=== PATIENT | male | born 1990 | race Caucasian/White ===

== ENCOUNTER 2017-07-23 20:28 | Inpatient (IN) | payer OTHER ==
--- NOTE | 2017-07-23 21:00 | EDM.PDOC ---
ED HPI GENERAL MEDICAL PROBLEM - General Chief Complaint: Gastrointestinal Problem Stated Complaint: VOMITING BLOOD 4X TODAY/ SHAKING Time Seen by Provider: 07/23/17 21:00 Source of Information: Reports: Patient History Limitations: Reports: No Limitations Upper Epigastric Pain Score (Numeric/FACES): 1 - Related Data Allergies Allergy/AdvReac Type Severity Reaction Status Date / Time No Known Allergies Allergy Verified 07/23/17 20:54 Home Meds: Home Meds . [No Known Home Meds] 07/23/17 [History] Past Medical History - Past Health History Medical/Surgical History: Denies Medical/Surgical History Social & Family History - Tobacco Use Smoking Status *Q: Current Every Day Smoker Years of Tobacco use: 9 Packs/Tins Daily: 1 - Caffeine Use Caffeine Use: Reports: Coffee, Energy Drinks - Alcohol Use Days Per Week of Alcohol Use: 5 Number of Drinks Per Day: 4 Total Drinks Per Week: 20 Date of Last Drink: 07/23/17 Time of Last Drink: 03:00 - Recreational Drug Use Recreational Drug Use: Yes Drug Use in Last 12 Months: No Recreational Drug Type: Reports: Marijuana/Hashish Course - Vital Signs Last Recorded V/S: Last Vital Signs Temp 36.2 C 07/23/17 20:49 Pulse 155 H 07/23/17 20:49 Resp 12 07/23/17 20:49 BP 129/78 07/23/17 20:49 Pulse Ox 99 07/23/17 20:49 Departure - Discharge Information Referrals: PCP,None [Primary Care Provider] -
[2017-07-23] MEDS ORDERED: Sodium Chloride 0.9% 10 ML Syringe FLUSH PRN (21:15)
[2017-07-23] MEDS ORDERED: Pantoprazole 40 MG Vial IVPUSH ONE (21:15)
[2017-07-23] MEDS ORDERED: Sodium Chloride 0.9% 2.5 ML Syringe FLUSH PRN (21:15)
[2017-07-23] MEDS ORDERED: Sodium Chloride 0.9% 1,000 ML IV ONE ×3 (21:15→22:36)
[2017-07-23] MEDS ORDERED: Ondansetron 4 MG/2 ML SDV IVPUSH ONE (21:15)
--- NOTE | 2017-07-23 21:19 | EDM.PDOC ---
ED HPI GENERAL MEDICAL PROBLEM - General Chief Complaint: Gastrointestinal Problem Stated Complaint: VOMITING BLOOD 4X TODAY/ SHAKING Time Seen by Provider: 07/23/17 21:00 - History of Present Illness INITIAL COMMENTS - FREE TEXT/NARRATIVE: HISTORY AND PHYSICAL: History of present illness: The patient is a 26-year-old male with no diagnosed GI history but who states that he has "reflux" that he has self diagnosed and intermittently takes over- the-counter meds for it; he presents today with 6 episodes of vomiting black and coffee ground starting at 4:00 this evening and one episode with some blood tinge. He says he had epigastric pain earlier but that has since improved. He feels weak and lightheaded but has not passed out or blacked out. He did have a bowel movement today which was looser than usual but not diarrhea and it was dark in color. He has never seen a physician for these problems and says that about 2 months ago he had something similar but not to this level and he did not seek treatment. The patient says that he drinks 5 days out of the week and did drink alcohol last evening. He drinks caffeine but not an excessive amount. As a went into the ER to evaluate the patient he did vomit up a small amount of black coffee-ground fluid. He has not had chest pain shortness of breath fevers chills or upper respiratory symptoms. He says he has been drinking water throughout the day but then he seems to keep vomiting and up. Please see below addendum note for further history Review of systems: As per history of present illness and below otherwise all systems reviewed and negative. Past medical history: As per history of present illness and as reviewed below otherwise noncontributory. Surgical history: As per history of present illness and as reviewed below otherwise noncontributory. Social history: No reported history of drug or alcohol abuse. Family history: As per history of present illness and as reviewed below otherwise noncontributory. Physical exam: Gen.: Well-developed well-nourished man who is nontoxic but looks pale and diaphoretic on my evaluation. Vital signs of been reviewed by me. Please see above for the vomiting that I witnessed. HEENT: Atraumatic, normocephalic, pupils reactive, negative for conjunctival pallor or scleral icterus, mucous membranes tacky, throat clear, neck supple, nontender, trachea midline. Lungs: Clear to auscultation, breath sounds equal bilaterally, chest nontender. No work of breathing stridor or wheezing Heart: S1S2, regular rhythm but tachycardic rate on my evaluation, negative for clicks, rubs, or JVD. Abdomen: Soft, nondistended, minimal epigastric tenderness without rebound or guarding. Bowel sounds are normoactive Negative for masses or hepatosplenomegaly. Negative for costovertebral tenderness. Pelvis: Stable nontender. Genitourinary: Deferred. Rectal: There is no external masses or lesions and tone is normal. There is scant black stool in the vault which is Hemoccult positive. Extremities: Atraumatic, negative for cords or calf pain. Neurovascular unremarkable. Neuro: Awake, alert, oriented. Cranial nerves II through XII unremarkable. Cerebellum unremarkable. Motor and sensory unremarkable throughout. Exam nonfocal. Patient seems a little shaky but was actively vomiting on my evaluation Skin: Overall pale appearance to the face and upper body with some diaphoresis, no rashes or lesions are seen overtly Diagnostics: EKG CBC CMP INR alcohol level amylase lipase chest x-ray H pylori Therapeutics: IV O2 monitor IV fluids Zofran and Protonix Ativan I discussed with the patient all testing results and discussed his history little bit further. The patient says that he has been drinking for a long time and does drink 5 days a week, a decent amount each time. When I approached him about his liver function test he says he is "not surprised" that his liver showing some signs of wear and tear due to his chronic alcohol use. I also discussed with him and shakiness which he said is improving and the possibility of some withdrawal which he also seems on surprised about. He overall feels better and looks much improved with improved color, no diaphoresis and heart rate now is in the 120s. Protonix drip will be given and I will also add Ativan. I will discuss this case with our hospitalist for admission 2224: Case was discussed with Dr. Almanza who would like inpatient admission to the ICU. He is aware of all testing results Impression: Upper GI bleed, history of chronic alcohol use, early alcohol withdrawal Definitive disposition and diagnosis as appropriate pending reevaluation and review of above. Upper Epigastric Pain Score (Numeric/FACES): 1 - Related Data Allergies Allergy/AdvReac Type Severity Reaction Status Date / Time No Known Allergies Allergy Verified 07/23/17 20:54 Home Meds: Home Meds . [No Known Home Meds] 07/23/17 [History] Past Medical History - Past Health History Medical/Surgical History: Denies Medical/Surgical History Social & Family History - Tobacco Use Smoking Status *Q: Current Every Day Smoker Years of Tobacco use: 9 Packs/Tins Daily: 1 - Caffeine Use Caffeine Use: Reports: Coffee, Energy Drinks - Alcohol Use Days Per Week of Alcohol Use: 5 Number of Drinks Per Day: 4 Total Drinks Per Week: 20 Date of Last Drink: 07/23/17 Time of Last Drink: 03:00 - Recreational Drug Use Recreational Drug Use: Yes Drug Use in Last 12 Months: No Recreational Drug Type: Reports: Marijuana/Hashish ED ROS GENERAL - Review of Systems Review Of Systems: ROS reveals no pertinent complaints other than HPI. ED EXAM, GENERAL - Physical Exam Exam: See Below (See dictation) Course - Vital Signs Last Recorded V/S: Last Vital Signs Temp 36.2 C 07/23/17 20:49 Pulse 155 H 07/23/17 20:49 Resp 12 07/23/17 20:49 BP 129/78 07/23/17 20:49 Pulse Ox 99 07/23/17 20:49 - Orders/Labs/Meds Orders: Active Orders 24 hr Category Date Time Status Patient Status [ADT] Stat ADT 07/23/17 22:32 Ordered Cardiac Monitoring [RC] . DIRECTED Care 07/23/17 21:14 Active EKG Documentation Completion [RC] STAT Care 07/23/17 21:14 Active Oxygen Therapy, ED [RC] ASDIRECTED Care 07/23/17 21:14 Active Pulse Oximetry [RC] ASDIRECTED Care 07/23/17 21:14 Active Chest 1V Frontal [CR] Stat Exams 07/23/17 21:15 Taken TYPE AND SCREEN [BBK] Stat Lab 07/23/17 21:26 Received Pantoprazole [ProTONIX IV] 80 mg Med 07/23/17 22:00 Active Sodium Chloride 0.9% [Normal Saline] 100 ml IV .Continuous Sodium Chloride 0.9% [Normal Saline] 1,000 ml Med 07/23/17 21:50 Active IV STAT Sodium Chloride 0.9% [Saline Flush] Med 07/23/17 21:15 Active 10 ml FLUSH ASDIRECTED PRN Sodium Chloride 0.9% [Saline Flush] Med 07/23/17 21:15 Active 2.5 ml FLUSH ASDIRECTED PRN Saline Lock Insert [OM.PC] Stat Oth 07/23/17 21:14 Ordered Medication Orders Pantoprazole Sodium 80 mg/ (Sodium Chloride) 100 mls @ 10 mls/hr IV .Continuous ARNOLDO Sodium Chloride (Normal Saline) 1,000 mls @ 999 mls/hr IV STAT ONE Stop: 07/23/17 22:50 Sodium Chloride (Saline Flush) 10 ml FLUSH ASDIRECTED PRN PRN Reason: Keep Vein Open Last Admin: 07/23/17 21:32 Dose: 10 ml Sodium Chloride (Saline Flush) 2.5 ml FLUSH ASDIRECTED PRN PRN Reason: Keep Vein Open Last Admin: 07/23/17 21:32 Dose: 2.5 ml Labs: Laboratory Tests 07/23/17 07/23/17 07/23/17 Range/Units 21:19 21:19 21:19 WBC 12.34 H (4.0-11.0) K/uL RBC 4.44 L (4.50-5.90) M/uL Hgb 13.3 (13.0-17.0) g/dL Hct 39.7 (38.0-50.0) % MCV 89.4 (80.0-98.0) fL MCH 30.0 (27.0-32.0) pg MCHC 33.5 (31.0-37.0) g/dL RDW Std Deviation 45.9 (28.0-62.0) fl RDW Coeff of [place] 14 (11.0-15.0) % Plt Count 334 (150-400) K/uL MPV 10.50 (7.40-12.00) fL Neut % (Auto) 78.7 (48.0-80.0) % Lymph % (Auto) 9.2 L (16.0-40.0) % [place] % (Auto) 11.6 (0.0-15.0) % Eos % (Auto) 0.2 (0.0-7.0) % Baso % (Auto) 0.3 (0.0-1.5) % Neut # (Auto) 9.7 H (1.4-5.7) K/uL Lymph # (Auto) 1.1 (0.6-2.4) K/uL [place] # (Auto) 1.4 H (0.0-0.8) K/uL Eos # (Auto) 0.0 (0.0-0.7) K/uL Baso # (Auto) 0.0 (0.0-0.1) K/uL Nucleated RBC % 0.1 /100WBC Nucleated RBCs # 0 K/uL INR 1.13 Sodium 139 (136-148) mmol/L Potassium 3.6 (3.5-5.1) mmol/L Chloride 97 L (98-107) mmol/L Carbon Dioxide 24.5 (21.0-32.0) mmol/L BUN 20 H (7.0-18.0) mg/dL Creatinine 1.1 (0.8-1.3) mg/dL Est Cr Clr Drug Dosing 115.01 mL/min Estimated GFR (MDRD) > 60.0 ml/min Glucose 169 H (74-106) mg/dL Calcium 9.3 (8.5-10.1) mg/dL Total Bilirubin 2.2 H (0.2-1.0) mg/dL AST 196 H (15-37) IU/L ALT 194 H (14-63) IU/L Alkaline Phosphatase 144 H (46-116) U/L Total Protein 7.4 (6.4-8.2) g/dL Albumin 3.3 L (3.4-5.0) g/dL Globulin 4.1 H (2.0-3.5) g/dL Albumin/Globulin Ratio 0.8 L (1.3-2.8) Amylase 30 (25-115) U/L Lipase 153 (73-393) U/L Ethyl Alcohol <3 mg/dL H. pylori IgG Antibody (NEG) 07/23/17 Range/Units 21:19 WBC (4.0-11.0) K/uL RBC (4.50-5.90) M/uL Hgb (13.0-17.0) g/dL Hct (38.0-50.0) % MCV (80.0-98.0) fL MCH (27.0-32.0) pg MCHC (31.0-37.0) g/dL RDW Std Deviation (28.0-62.0) fl RDW Coeff of [place] (11.0-15.0) % Plt Count (150-400) K/uL MPV (7.40-12.00) fL Neut % (Auto) (48.0-80.0) % Lymph % (Auto) (16.0-40.0) % [place] % (Auto) (0.0-15.0) % Eos % (Auto) (0.0-7.0) % Baso % (Auto) (0.0-1.5) % Neut # (Auto) (1.4-5.7) K/uL Lymph # (Auto) (0.6-2.4) K/uL [place] # (Auto) (0.0-0.8) K/uL Eos # (Auto) (0.0-0.7) K/uL Baso # (Auto) (0.0-0.1) K/uL Nucleated RBC % /100WBC Nucleated RBCs # K/uL INR Sodium (136-148) mmol/L Potassium (3.5-5.1) mmol/L Chloride (98-107) mmol/L Carbon Dioxide (21.0-32.0) mmol/L BUN (7.0-18.0) mg/dL Creatinine (0.8-1.3) mg/dL Est Cr Clr Drug Dosing mL/min Estimated GFR (MDRD) ml/min Glucose (74-106) mg/dL Calcium (8.5-10.1) mg/dL Total Bilirubin (0.2-1.0) mg/dL AST (15-37) IU/L ALT (14-63) IU/L Alkaline Phosphatase (46-116) U/L Total Protein (6.4-8.2) g/dL Albumin (3.4-5.0) g/dL Globulin (2.0-3.5) g/dL Albumin/Globulin Ratio (1.3-2.8) Amylase (25-115) U/L Lipase (73-393) U/L Ethyl Alcohol mg/dL H. pylori IgG Antibody NEGATIVE (NEG) Meds: Medications Generic Name Dose Route Start Last Admin Trade Name Freq PRN Reason Stop Dose Admin Pantoprazole Sodium 80 mg/ 100 mls @ 10 mls/hr 07/23/17 22:00 Sodium Chloride IV .Continuous ARNOLDO Sodium Chloride 1,000 mls @ 999 mls/hr 07/23/17 21:50 Normal Saline IV 07/23/17 22:50 STAT ONE Sodium Chloride 10 ml 07/23/17 21:15 07/23/17 21:32 Saline Flush FLUSH 10 ml ASDIRECTED PRN Administration Keep Vein Open Sodium Chloride 2.5 ml 07/23/17 21:15 07/23/17 21:32 Saline Flush FLUSH 2.5 ml ASDIRECTED PRN Administration Keep Vein Open Discontinued Medications Generic Name Dose Route Start Last Admin Trade Name Freq PRN Reason Stop Dose Admin Sodium Chloride 1,000 mls @ 999 mls/hr 07/23/17 21:15 07/23/17 21:32 Normal Saline IV 07/23/17 22:15 999 mls/hr STAT ONE Administration Lorazepam 1 mg 07/23/17 22:19 Ativan IVPUSH 07/23/17 22:20 ONETIME ONE Ondansetron HCl 4 mg 07/23/17 21:15 07/23/17 21:36 Zofran IVPUSH 07/23/17 21:16 4 mg ONETIME ONE Administration Pantoprazole Sodium 80 mg 07/23/17 21:15 07/23/17 21:36 Protonix Iv IVPUSH 07/23/17 21:16 80 mg .BOLUS ONE Administration Departure - Departure Time of Disposition: 22:34 Disposition: Admitted As Inpatient 66 Condition: Good Clinical Impression: Upper GI bleeding, Alcohol abuse, Elevated liver function tests - Discharge Information Referrals: PCP,None [Primary Care Provider] - Forms: ED Department Discharge - My Orders Last 24 Hours: My Active Orders 07/23/17 21:14 Cardiac Monitoring [RC] . DIRECTED EKG Documentation Completion [RC] STAT Oxygen Therapy, ED [RC] ASDIRECTED Pulse Oximetry [RC] ASDIRECTED Saline Lock Insert [OM.PC] Stat 07/23/17 21:15 Chest 1V Frontal [CR] Stat Sodium Chloride 0.9% [Saline Flush] 10 ml FLUSH ASDIRECTED PRN Sodium Chloride 0.9% [Saline Flush] 2.5 ml FLUSH ASDIRECTED PRN 07/23/17 21:26 TYPE AND SCREEN [BBK] Stat 07/23/17 21:50 Sodium Chloride 0.9% [Normal Saline] 1,000 ml IV STAT 07/23/17 22:00 Pantoprazole [ProTONIX IV] 80 mg Sodium Chloride 0.9% [Normal Saline] 100 ml IV .Continuous 07/23/17 22:32 Patient Status [ADT] Stat - Assessment/Plan Last 24 Hours: My Active Orders 07/23/17 21:14 Cardiac Monitoring [RC] . DIRECTED EKG Documentation Completion [RC] STAT Oxygen Therapy, ED [RC] ASDIRECTED Pulse Oximetry [RC] ASDIRECTED Saline Lock Insert [OM.PC] Stat 07/23/17 21:15 Chest 1V Frontal [CR] Stat Sodium Chloride 0.9% [Saline Flush] 10 ml FLUSH ASDIRECTED PRN Sodium Chloride 0.9% [Saline Flush] 2.5 ml FLUSH ASDIRECTED PRN 07/23/17 21:26 TYPE AND SCREEN [BBK] Stat 07/23/17 21:50 Sodium Chloride 0.9% [Normal Saline] 1,000 ml IV STAT 07/23/17 22:00 Pantoprazole [ProTONIX IV] 80 mg Sodium Chloride 0.9% [Normal Saline] 100 ml IV .Continuous 07/23/17 22:32 Patient Status [ADT] Stat
[2017-07-23 21:55] LABS: CHLORIDE,CL 97 mmol/L (98-107); SODIUM,NA 139 mmol/L (136-148)
[2017-07-23] MEDS ORDERED: Pantoprazole 80 MG in Sodium Chloride 0.9% 100 ML IV SCH (22:00)
[2017-07-23] MEDS ORDERED: LORazepam 2 MG/ML SDV IVPUSH ONE (22:19)
[2017-07-23] MEDS ORDERED: Morphine 10 MG/ML Syringe IVPUSH PRN (23:25)
[2017-07-23] MEDS ORDERED: MVI, Adult with Vitamin K 10 ML, Thiamine 100 MG, Folic Acid 1 MG in Sodium Chloride 0.... IV ONE ×4 (23:31)
--- NOTE | 2017-07-23 23:39 | PCM.HP ---
H&P History of Present Illness - General Date of Service: 07/23/17 Admit Problem/Dx: Admission Diagnosis/Problem Admission Diagnosis/Problem Gastrointestinal hemorrhage Source of Information: Patient, Provider - History of Present Illness Initial Comments - Free Text/Narative: He presented to the ED today after 4 plus episodes of coffee ground emesis as per Dr Ellen Gardner's note. HE has been drinking beer and some other hard alcohol about five days per week. He noted epigastric pain. He feels better. Dr Gardner noted heme positive dark stool. Upper Epigastric Pain Score (Numeric/FACES): 1 - Related Data Allergies/Adverse Reactions: Allergies Allergy/AdvReac Type Severity Reaction Status Date / Time No Known Allergies Allergy Verified 07/23/17 20:54 Home Medications: Home Meds . [No Known Home Meds] 07/23/17 [History] Past Medical History - Past Health History Medical/Surgical History: Denies Medical/Surgical History Cardiovascular History: Denies: Afib, CAD, Cardiomyopathy, Heart Failure, Heart Valve Replacement Respiratory History: Denies: COPD Gastrointestinal History: Denies: Cholelithiasis, Cirrhosis Genitourinary History: Denies: Chronic Renal Insuffiency Neurological History: Denies: Brain Injury, CVA, MS Endocrine/Metabolic History: Denies: Gonzales's Disease, Diabetes, Type I, Diabetes, Type II Hematologic History: Denies: Anticoagulation Therapy Oncologic (Cancer) History: Reports: None - Past Surgical History Head Surgeries/Procedures: Reports: None Social & Family History - Tobacco Use Smoking Status *Q: Current Every Day Smoker (He quit smoking regular cigarettes and now smokes e cigarettes) Years of Tobacco use: 9 Packs/Tins Daily: 1 - Caffeine Use Caffeine Use: Reports: Coffee, Energy Drinks - Alcohol Use Days Per Week of Alcohol Use: 5 Number of Drinks Per Day: 4 Total Drinks Per Week: 20 Date of Last Drink: 07/23/17 Time of Last Drink: 03:00 - Recreational Drug Use Recreational Drug Use: Yes Drug Use in Last 12 Months: No Recreational Drug Type: Reports: Marijuana/Hashish H&P Review of Systems - Review of Systems: Review Of Systems: See Below General: Denies: Fever, Chills Pulmonary: Denies: Shortness of Breath, Wheezing, Cough, Sputum Cardiovascular: Denies: Chest Pain Gastrointestinal: Reports: Abdominal Pain, Black Stool, Hematemesis Genitourinary: Denies: Hematuria Exam - Exam Exam: See Below - Vital Signs Vital Signs: Last Vital Signs Temp 97.2 F 07/23/17 20:49 Pulse 122 H 07/23/17 22:48 Resp 17 07/23/17 22:48 BP 136/88 07/23/17 22:48 Pulse Ox 97 07/23/17 22:48 Weight: 88 kg - Exam General: Alert, Oriented, Cooperative HEENT: EOMI Lungs: Clear to Auscultation Cardiovascular: Regular Rate, Regular Rhythm, Tachycardia GI/Abdominal Exam: Soft, Tender (mild epigastric tenderness). No: Distended, Rebound Rectal (Males) Exam: Other (rectal exam was performed by Dr Gardner) Skin: Other (slight clubbing of fingernails noted) Neurological: Cranial Nerves Intact, Normal Speech Neuro Extensive - Motor, Sensory, Reflexes: No: Facial palsy (L), Facial Palsy ( R) Psychiatric: Alert, Normal Affect - Patient Data Result Diagrams: 07/23/17 21:19 07/23/17 21:19 *Q Meaningful Use (ADM) - VTE *Q VTE Criteria *Q: - Stroke *Q Stroke Criteria *Q: - AMI *Q AMI Criteria *Q: - Problem List (1) Alcohol abuse SNOMED Code(s): 95326440 ICD Code: F10.10 - ALCOHOL ABUSE, UNCOMPLICATED Status: Acute Current Visit: Yes (2) Elevated liver function tests SNOMED Code(s): 104682501 ICD Code: R79.89 - OTHER SPECIFIED ABNORMAL FINDINGS OF BLOOD CHEMISTRY Status: Acute Current Visit: Yes (3) Upper GI bleeding SNOMED Code(s): 77285276 ICD Code: K92.2 - GASTROINTESTINAL HEMORRHAGE, UNSPECIFIED Status: Acute Current Visit: Yes Problem List Initiated/Reviewed/Updated: Yes Orders Last 24hrs: Active Orders 24 hr Category Date Time Status Notify Provider Consults [RC] ASDIRECTED Care 07/23/17 23:31 Ordered Oxygen Therapy [RC] PRN Care 07/23/17 23:24 Ordered Oxygen Therapy [RC] PRN Care 07/23/17 23:25 Ordered VTE/DVT Education [RC] PER UNIT ROUTINE Care 07/23/17 23:24 Ordered VTE/DVT Education [RC] PER UNIT ROUTINE Care 07/23/17 23:25 Ordered Vital Signs [RC] Q4H Care 07/23/17 23:24 Ordered Vital Signs [RC] Q4H Care 07/23/17 23:25 Ordered Consult to Physician [CONS] Urgent Cons 07/24/17 09:00 Ordered Regular Diet [DIET] Diet 07/23/17 Dinner Ordered CBC WITH AUTO DIFF [HEME] Q6H Lab 07/24/17 05:00 Ordered CBC WITH AUTO DIFF [HEME] Q6H Lab 07/24/17 11:00 Ordered CBC WITH AUTO DIFF [HEME] Q6H Lab 07/24/17 17:00 Ordered CBC WITH AUTO DIFF [HEME] Q6H Lab 07/24/17 23:00 Ordered CBC WITH AUTO DIFF [HEME] Q6H Lab 07/25/17 05:00 Ordered COMPREHENSIVE METABOLIC PN,CMP [CHEM] AM Lab 07/24/17 05:11 Ordered COMPREHENSIVE METABOLIC PN,CMP [CHEM] AM Lab 07/25/17 05:11 Ordered COMPREHENSIVE METABOLIC PN,CMP [CHEM] AM Lab 07/26/17 05:11 Ordered INR,PT,PROTHROMBIN TIME [COAG] AM Lab 07/24/17 05:11 Ordered INR,PT,PROTHROMBIN TIME [COAG] AM Lab 07/25/17 05:11 Ordered INR,PT,PROTHROMBIN TIME [COAG] AM Lab 07/26/17 05:11 Ordered MAGNESIUM [CHEM] AM Lab 07/24/17 05:11 Ordered MAGNESIUM [CHEM] AM Lab 07/25/17 05:11 Ordered MAGNESIUM [CHEM] AM Lab 07/26/17 05:11 Ordered LORazepam [Ativan] Med 07/23/17 23:27 Ordered See Protocol IVPUSH Q1H PRN MVI, Adult with Vitamin K [Infuvite Adult] 10 ml Med 07/23/17 23:31 Ordered Thiamine [Vitamin B-1] 100 mg Folic Acid 1 mg Sodium Chloride 0.9% [Normal Saline] 1,000 ml IV DAILY Morphine Med 07/23/17 23:25 Ordered 5 mg IVPUSH Q2H PRN Sodium Chloride 0.9% [Normal Saline] 1,000 ml Med 07/23/17 22:36 Active IV STAT Resuscitation Status Routine Resus Stat 07/23/17 23:24 Ordered Medication Orders Pantoprazole Sodium 80 mg/ (Sodium Chloride) 100 mls @ 10 mls/hr IV .Continuous ARNOLDO Last Admin: 07/23/17 22:44 Dose: 10 mls/hr Sodium Chloride (Normal Saline) 1,000 mls @ 150 mls/hr IV STAT ONE Stop: 07/24/17 05:15 Last Admin: 07/23/17 22:41 Dose: 150 mls/hr Multivitamins/Minerals 10 ml/Thiamine HCl 100 mg/ Folic Acid 1 mg/ Sodium Chloride 1,011.2 mls @ 125 mls/hr IV DAILY ONE Stop: 07/24/17 07:36 Lorazepam (Ativan) 0 mg IVPUSH Q1H PRN; Protocol PRN Reason: Other Morphine Sulfate (Morphine) 5 mg IVPUSH Q2H PRN PRN Reason: Pain (severe 7-10) Stop: 07/24/17 23:26 Sodium Chloride (Saline Flush) 10 ml FLUSH ASDIRECTED PRN PRN Reason: Keep Vein Open Last Admin: 07/23/17 21:32 Dose: 10 ml Sodium Chloride (Saline Flush) 2.5 ml FLUSH ASDIRECTED PRN PRN Reason: Keep Vein Open Last Admin: 07/23/17 21:32 Dose: 2.5 ml Assessment/Plan Comment:: 07/23/2017 11 38 pm I spoke with Dr GALLARDO who will see patient tomorrow. see orders protonix casi Almanza MD
[2017-07-24] MEDS: LORazepam 2 MG/ML SDV IVPUSH PRN ×4 (05:35→20:15)
[2017-07-24 06:04] LABS: CHLORIDE,CL 105 mmol/L (98-107); SODIUM,NA 140 mmol/L (136-148)
[2017-07-24] MEDS ORDERED: Magnesium Sulfate/Water 2 GM in Premix Bag 1 BAG IV ONE (06:28)
--- NOTE | 2017-07-24 08:12 | PCM.SN ---
- Free Text/Narrative Note: pt seen, chart reviewed, cx dictated [id number]; poss gib, gib protocol, avoid anticoag, 2 large bore iv access, strict i/o, h/h q 8 X 24 hrs; depends on hosp course, may benefit from inpatient or outpatient endoscopy; pt voiced understanding; will follow pt w you
[2017-07-24] MEDS: Pantoprazole 80 MG in Sodium Chloride 0.9% 100 ML IV SCH ×2 (09:37→19:47)
[2017-07-24] MEDS ORDERED: Magnesium Sulfate/Water 4 GM in Premix Bag 1 BAG IV ONE (11:04)
--- NOTE | 2017-07-24 11:27 | US ---
EXAMINATION: Right upper quadrant ultrasound HISTORY: Abnormal liver function COMPARISON: None TECHNIQUE: Grayscale and color Doppler images obtained of the right upper quadrant. FINDINGS: The visualized pancreas appears normal. The liver is mildly increased in generalized echote xture without a focal hepatic mass. The liver measures mildly enlarged. Gallbladder wall thickness is normal. No pericholecystic fluid or shadowing gallstones. The common bile duct measures 4 mm. Right kidney measures at least 8.7 cm [id number] without evidence of hydronephrosis. IMPRESSION: 1. Mild fatty infiltration of the liver versus hepatocellular disease. 2. Unremarkable gallbladder.
--- NOTE | 2017-07-24 16:54 | CR ---
EXAM DATE: 07/23/17 PATIENT'S AGE: 26 Patient: BOGDAN SIERRA Facility: [place], [place] Site . Site : 1990 Study: XRay Chest [id number]/11/2018 9:52:10 PM Ordering Physician: Jj Hughes Final Report: INDICATION: sob INDICATION: Shortness of breath. TECHNIQUE: Chest, 2 portable views. COMPARISON: None FINDINGS: Cardiovascular and mediastinum: Heart size and vasculature are normal in caliber and appearance. Mediastinum is within normal limits. Lungs and pleural space: Lungs are clear. No sign of infiltrate or mass. No sign of pleural effusion. No pneumothorax. Bones and soft tissues: No significant findings. IMPRESSION: Lungs are clear. Dictated by Gibran Metzger MD @ 07/23/2017 9:53:43 PM Dictated by: Gibran Metzger MD @ 07/23/2017 21:53:50 (Electronic Signature) Report Signed by Proxy. [facility]
--- NOTE | 2017-07-24 18:11 | PCM.PN ---
- General Info Date of Service: 07/24/17 Subjective Update: Patient is determined not to be having esophageal varices bleeds, he does not have any further coffee-ground emesis. His nausea is under better control secondary to the Zofran. He is having significant anxiety/agitation/tremors secondary to withdrawal symptoms. He is able to tolerate by mouth presently once he's given Zofran. - Patient Data Vitals - Most Recent: Last Vital Signs Temp 36.6 C 07/24/17 16:00 Pulse 122 H 07/24/17 18:00 Resp 21 H 07/24/17 18:00 BP 148/81 H 07/24/17 18:00 Pulse Ox 95 07/24/17 18:00 Weight - Most Recent: 89.2 kg I&O - Last 24 Hours: Intake & Output 07/24/17 07/24/17 07/24/17 06:59 14:59 22:59 Intake Total 200 1948 1584 Output Total 0 1490 Balance 200 1948 94 Lab Results Last 24 Hours: Laboratory Results - last 24 hr 07/24/17 07/24/17 07/24/17 Range/Units 05:08 05:08 05:08 WBC 10.15 (4.0-11.0) K/uL RBC 3.53 L (4.50-5.90) M/uL Hgb 10.5 L (13.0-17.0) g/dL Hct 31.5 L (38.0-50.0) % MCV 89.2 (80.0-98.0) fL MCH 29.7 (27.0-32.0) pg MCHC 33.3 (31.0-37.0) g/dL RDW Std Deviation 46.3 (28.0-62.0) fl RDW Coeff of [place] 14 (11.0-15.0) % Plt Count 261 (150-400) K/uL MPV 11.00 (7.40-12.00) fL Neut % (Auto) (48.0-80.0) % Lymph % (Auto) (16.0-40.0) % [place] % (Auto) (0.0-15.0) % Eos % (Auto) (0.0-7.0) % Baso % (Auto) (0.0-1.5) % Neut # (Auto) (1.4-5.7) K/uL Lymph # (Auto) (0.6-2.4) K/uL [place] # (Auto) (0.0-0.8) K/uL Eos # (Auto) (0.0-0.7) K/uL Baso # (Auto) (0.0-0.1) K/uL Add Manual Diff YES Neutrophils % (Manual) 60 (48.0-80.0) % Band Neutrophils % % Lymphocytes % (Manual) 30 (16.0-40.0) % Monocytes % (Manual) 8 (0.0-15.0) % Eosinophils % (Manual) 1 (0.0-7.0) % Basophils % (Manual) 1 (0.0-1.5) % Nucleated RBC % 0.0 /100WBC Absolute Seg Neuts 6.1 H (1.4-5.7) Band Neutrophils # Lymphocytes # (Manual) 3.0 H (0.6-2.4) Monocytes # (Manual) 0.8 (0.0-0.8) Eosinophils # (Manual) 0.1 (0.0-0.7) Basophils # (Manual) 0.1 (0.0-0.1) Nucleated RBCs # 0 K/uL INR 1.13 Sodium 140 (136-148) mmol/L Potassium 3.6 (3.5-5.1) mmol/L Chloride 105 (98-107) mmol/L Carbon Dioxide 26.6 (21.0-32.0) mmol/L BUN 17 (7.0-18.0) mg/dL Creatinine 0.9 (0.8-1.3) mg/dL Est Cr Clr Drug Dosing 139.89 mL/min Estimated GFR (MDRD) > 60.0 ml/min Glucose 84 (74-106) mg/dL Calcium 7.6 L (8.5-10.1) mg/dL Phosphorus (2.6-4.7) mg/dL Magnesium 1.0 L (1.5-2.0) mg/dL Total Bilirubin 1.8 H (0.2-1.0) mg/dL AST 153 H (15-37) IU/L ALT 135 H (14-63) IU/L Alkaline Phosphatase 97 (46-116) U/L Total Protein 5.5 L (6.4-8.2) g/dL Albumin 2.4 L (3.4-5.0) g/dL Globulin 3.1 (2.0-3.5) g/dL Albumin/Globulin Ratio 0.8 L (1.3-2.8) 07/24/17 07/24/17 07/24/17 Range/Units 05:08 11:02 17:23 WBC 8.21 8.39 (4.0-11.0) K/uL RBC 3.57 L 3.91 L (4.50-5.90) M/uL Hgb 10.5 L 11.7 L (13.0-17.0) g/dL Hct 32.1 L 35.3 L (38.0-50.0) % MCV 89.9 90.3 (80.0-98.0) fL MCH 29.4 29.9 (27.0-32.0) pg MCHC 32.7 33.1 (31.0-37.0) g/dL RDW Std Deviation 46.7 46.8 (28.0-62.0) fl RDW Coeff of [place] 14 14 (11.0-15.0) % Plt Count 223 270 (150-400) K/uL MPV 10.20 10.30 (7.40-12.00) fL Neut % (Auto) 62.1 (48.0-80.0) % Lymph % (Auto) 21.3 (16.0-40.0) % [place] % (Auto) 13.0 (0.0-15.0) % Eos % (Auto) 2.9 (0.0-7.0) % Baso % (Auto) 0.7 (0.0-1.5) % Neut # (Auto) 5.2 (1.4-5.7) K/uL Lymph # (Auto) 1.8 (0.6-2.4) K/uL [place] # (Auto) 1.1 H (0.0-0.8) K/uL Eos # (Auto) 0.2 (0.0-0.7) K/uL Baso # (Auto) 0.1 (0.0-0.1) K/uL Add Manual Diff YES Neutrophils % (Manual) 63 (48.0-80.0) % Band Neutrophils % 3 % Lymphocytes % (Manual) 24 (16.0-40.0) % Monocytes % (Manual) 9 (0.0-15.0) % Eosinophils % (Manual) 1 (0.0-7.0) % Basophils % (Manual) (0.0-1.5) % Nucleated RBC % 0.0 0.0 /100WBC Absolute Seg Neuts 5.2 (1.4-5.7) Band Neutrophils # 0.2 Lymphocytes # (Manual) 2.0 (0.6-2.4) Monocytes # (Manual) 0.7 (0.0-0.8) Eosinophils # (Manual) 0.1 (0.0-0.7) Basophils # (Manual) (0.0-0.1) Nucleated RBCs # 0 0 K/uL INR Sodium (136-148) mmol/L Potassium (3.5-5.1) mmol/L Chloride (98-107) mmol/L Carbon Dioxide (21.0-32.0) mmol/L BUN (7.0-18.0) mg/dL Creatinine (0.8-1.3) mg/dL Est Cr Clr Drug Dosing mL/min Estimated GFR (MDRD) ml/min Glucose (74-106) mg/dL Calcium (8.5-10.1) mg/dL Phosphorus 3.4 (2.6-4.7) mg/dL Magnesium (1.5-2.0) mg/dL Total Bilirubin (0.2-1.0) mg/dL AST (15-37) IU/L ALT (14-63) IU/L Alkaline Phosphatase (46-116) U/L Total Protein (6.4-8.2) g/dL Albumin (3.4-5.0) g/dL Globulin (2.0-3.5) g/dL Albumin/Globulin Ratio (1.3-2.8) Med Orders - Current: Current Medications Pantoprazole Sodium 80 mg/ (Sodium Chloride) 100 mls @ 10 mls/hr IV Q10H [facility] Last Admin: 07/24/17 09:37 Dose: 10 mls/hr Lorazepam (Ativan) 0 mg IVPUSH Q1H PRN; Protocol PRN Reason: Other Last Admin: 07/24/17 15:08 Dose: 1 mg Morphine Sulfate (Morphine) 5 mg IVPUSH Q2H PRN PRN Reason: Pain (severe 7-10) Stop: 07/24/17 23:26 Sodium Chloride (Saline Flush) 10 ml FLUSH ASDIRECTED PRN PRN Reason: Keep Vein Open Last Admin: 07/23/17 21:32 Dose: 10 ml Sodium Chloride (Saline Flush) 2.5 ml FLUSH ASDIRECTED PRN PRN Reason: Keep Vein Open Last Admin: 07/23/17 21:32 Dose: 2.5 ml Discontinued Medications Sodium Chloride (Normal Saline) 1,000 mls @ 999 mls/hr IV STAT ONE Stop: 07/23/17 22:15 Last Admin: 07/23/17 21:32 Dose: 999 mls/hr Pantoprazole Sodium 80 mg/ (Sodium Chloride) 100 mls @ 10 mls/hr IV .Continuous [facility] Stop: 07/24/17 10:00 Last Admin: 07/23/17 22:44 Dose: 10 mls/hr Sodium Chloride (Normal Saline) 1,000 mls @ 999 mls/hr IV STAT ONE Stop: 07/23/17 22:50 Last Admin: 07/23/17 22:39 Dose: 999 mls/hr Sodium Chloride (Normal Saline) 1,000 mls @ 150 mls/hr IV STAT ONE Stop: 07/24/17 05:15 Last Admin: 07/23/17 22:41 Dose: 150 mls/hr Multivitamins/Minerals 10 ml/Thiamine HCl 100 mg/ Folic Acid 1 mg/ Sodium Chloride 1,011.2 mls @ 125 mls/hr IV DAILY ONE Stop: 07/24/17 07:36 Last Admin: 07/24/17 00:27 Dose: 125 mls/hr Magnesium Sulfate 2 gm/ Premix 50 mls @ 50 mls/hr IV ONETIME ONE Stop: 07/24/17 07:27 Last Admin: 07/24/17 07:25 Dose: 50 mls/hr Magnesium Sulfate 4 gm/ Premix 100 mls @ 25 mls/hr IV ONETIME ONE Stop: 07/24/17 15:03 Last Admin: 07/24/17 13:45 Dose: 25 mls/hr Lorazepam (Ativan) 1 mg IVPUSH ONETIME ONE Stop: 07/23/17 22:20 Last Admin: 07/23/17 22:44 Dose: 1 mg Ondansetron HCl (Zofran) 4 mg IVPUSH ONETIME ONE Stop: 07/23/17 21:16 Last Admin: 07/23/17 21:36 Dose: 4 mg Pantoprazole Sodium (Protonix Iv) 80 mg IVPUSH .BOLUS ONE Stop: 07/23/17 21:16 Last Admin: 07/23/17 21:36 Dose: 80 mg - Exam Quality Assessment: Supplemental Oxygen General: Alert, Oriented, Mild Distress HEENT: Pupils Equal Lungs: Clear to Auscultation, Normal Respiratory Effort Cardiovascular: Regular Rate, Regular Rhythm GI/Abdominal Exam: Tender - Problem List Review Problem List Initiated/Reviewed/Updated: Yes - My Orders Last 24 Hours: My Active Orders 07/24/17 18:15 Folic Acid 1 mg PO DAILY Thiamine [Vitamin B-1] 100 mg IV DAILY - Plan Plan:: Upper GI bleed- based on the patient's history of coffee-ground emesis he likely etiology of the patient's GI bleed is peptic ulcer disease, rather than esophageal varices. Dr. Salcedo did assess the patient and does not believe that the patient needs an emergent EGD. Patient can see him outpatient where he will have the patient have an EGD at that point in time. -Dr. Moralez advises to simply continue the Protonix drip at this point in time. - Patient is continuing to have alcohol withdrawal, CIWA scores of 6-10. Continue Ativan protocol. Shall reassess in the a.m.
[2017-07-24] MEDS ORDERED: Ondansetron 4 MG/2 ML SDV IVPUSH PRN (18:16)
[2017-07-24] MEDS: Thiamine 200 MG/2 ML MDV IV SCH (18:28)
[2017-07-24] MEDS: Folic Acid 1 MG Tab PO SCH (18:28)
[2017-07-25] MEDS: LORazepam 2 MG/ML SDV IVPUSH PRN ×3 (02:11→22:31)
[2017-07-25 05:52] LABS: CHLORIDE,CL 104 mmol/L (98-107); SODIUM,NA 138 mmol/L (136-148)
[2017-07-25] MEDS: Pantoprazole 80 MG in Sodium Chloride 0.9% 100 ML IV SCH ×2 (06:07→16:34)
[2017-07-25] MEDS: Folic Acid 1 MG Tab PO SCH (08:21)
[2017-07-25] MEDS: Thiamine 200 MG/2 ML MDV IV SCH (08:22)
--- NOTE | 2017-07-25 08:43 | CONS ---
DATE OF CONSULTATION: 07/24/2017 DATE OF : 1990 PRIMARY CARE PHYSICIAN: None PCP Dr. Moralez was consulted and consult question is GI bleeding. HISTORY OF PRESENT ILLNESS: The patient is a 26-year-old gentleman with hard liquor drinking every day and presented to the emergency room with 4 to 6 episodes of coffee-ground emesis, and the patient was admitted to the medical service and managed as an ICU admission. In the last 12 hours, there were no episodes of vomiting and no BM. The patient denied bright red blood per rectum and denied black tarry stool. The patient admits to have dark stool, but denied black. Denied shortness of breath, denied chest pain, denied dizziness. The patient is currently hungry. Last bowel movement was 24 hours before admission and was a regular, brown, well-formed stool. ALLERGIES: Please refer to nursing for details. MEDICATIONS: Please refer to nursing for details. PAST MEDICAL HISTORY: Significant for no diabetes, LA, CVA, or hypertension. PAST SURGICAL HISTORY: No abdominal surgery. FAMILY HISTORY: Noncontributory. SOCIAL HISTORY: The patient is e-cigarette smoking and hard liquor drinking every day. LABORATORY DATA: On admission, laboratory; white cells 12, H and H are 13 and 40, and platelets are 334,000. INR is 1.11. BUN is 20, creatinine is 1.1. Total bilirubin is 2.2. Alkaline phosphatase is 144. Amylase and lipase are 30 and 153. AST and ALT are elevated at 196 and 194. IMPRESSION/PLAN: Suspect gastrointestinal bleeding. I agree what you are doing. Check H and H every 8 hours and avoid any anticoagulation. IV Protonix dripping. Strict in and out and checking urine output and 2 large-bore IV access. Depends on the patient's hospital course, may benefit from either inpatient or outpatient EGD. Plan has been discussed with the patient, patient concurs, and we will follow with the patient with you. As always, thank you for the kind referral. JENNIFER / AGUILAR /[id number]
--- NOTE | 2017-07-25 11:43 | PCM.SURGPN ---
- General Info Date of Service: 07/25/17 Functional Status: Reports: Pain Controlled - Review of Systems Cardiovascular: Reports: No Symptoms Gastrointestinal: Reports: No Symptoms - Patient Data Vitals - Most Recent: Last Vital Signs Temp 97.6 F 07/25/17 08:00 Pulse 84 07/25/17 07:00 Resp 17 07/25/17 11:00 BP 128/83 07/25/17 11:00 Pulse Ox 96 07/25/17 11:00 Weight - Most Recent: 196 lb 6.91 oz I&O - Last 24 Hours: Intake & Output 07/24/17 07/25/17 07/25/17 22:59 06:59 14:59 Intake Total 1684 500 Output Total 1490 2500 Balance 194 -1999 Lab Results Last 24 Hrs: Laboratory Results - last 24 hr 07/24/17 07/24/17 07/25/17 Range/Units 17:23 23:05 05:22 WBC 8.39 6.43 6.72 (4.0-11.0) K/uL RBC 3.91 L 3.59 L 3.53 L (4.50-5.90) M/uL Hgb 11.7 L 10.7 L 10.5 L (13.0-17.0) g/dL Hct 35.3 L 32.4 L 32.1 L (38.0-50.0) % MCV 90.3 90.3 90.9 (80.0-98.0) fL MCH 29.9 29.8 29.7 (27.0-32.0) pg MCHC 33.1 33.0 32.7 (31.0-37.0) g/dL RDW Std Deviation 46.8 47.1 46.8 (28.0-62.0) fl RDW Coeff of [place] 14 14 14 (11.0-15.0) % Plt Count 270 232 234 (150-400) K/uL MPV 10.30 10.40 10.40 (7.40-12.00) fL Neut % (Auto) 62.1 52.6 53.9 (48.0-80.0) % Lymph % (Auto) 21.3 28.6 26.6 (16.0-40.0) % [place] % (Auto) 13.0 13.7 14.1 (0.0-15.0) % Eos % (Auto) 2.9 3.7 4.2 (0.0-7.0) % Baso % (Auto) 0.7 1.4 1.2 (0.0-1.5) % Neut # (Auto) 5.2 3.4 3.6 (1.4-5.7) K/uL Lymph # (Auto) 1.8 1.8 1.8 (0.6-2.4) K/uL [place] # (Auto) 1.1 H 0.9 H 1.0 H (0.0-0.8) K/uL Eos # (Auto) 0.2 0.2 0.3 (0.0-0.7) K/uL Baso # (Auto) 0.1 0.1 0.1 (0.0-0.1) K/uL Nucleated RBC % 0.0 0.0 0.0 /100WBC Nucleated RBCs # 0 0 0 K/uL INR Sodium (136-148) mmol/L Potassium (3.5-5.1) mmol/L Chloride (98-107) mmol/L Carbon Dioxide (21.0-32.0) mmol/L BUN (7.0-18.0) mg/dL Creatinine (0.8-1.3) mg/dL Est Cr Clr Drug Dosing mL/min Estimated GFR (MDRD) ml/min Glucose (74-106) mg/dL Calcium (8.5-10.1) mg/dL Magnesium (1.5-2.0) mg/dL Total Bilirubin (0.2-1.0) mg/dL AST (15-37) IU/L ALT (14-63) IU/L Alkaline Phosphatase (46-116) U/L Total Protein (6.4-8.2) g/dL Albumin (3.4-5.0) g/dL Globulin (2.0-3.5) g/dL Albumin/Globulin Ratio (1.3-2.8) 07/25/17 07/25/17 Range/Units 05:22 05:22 WBC (4.0-11.0) K/uL RBC (4.50-5.90) M/uL Hgb (13.0-17.0) g/dL Hct (38.0-50.0) % MCV (80.0-98.0) fL MCH (27.0-32.0) pg MCHC (31.0-37.0) g/dL RDW Std Deviation (28.0-62.0) fl RDW Coeff of [place] (11.0-15.0) % Plt Count (150-400) K/uL MPV (7.40-12.00) fL Neut % (Auto) (48.0-80.0) % Lymph % (Auto) (16.0-40.0) % [place] % (Auto) (0.0-15.0) % Eos % (Auto) (0.0-7.0) % Baso % (Auto) (0.0-1.5) % Neut # (Auto) (1.4-5.7) K/uL Lymph # (Auto) (0.6-2.4) K/uL [place] # (Auto) (0.0-0.8) K/uL Eos # (Auto) (0.0-0.7) K/uL Baso # (Auto) (0.0-0.1) K/uL Nucleated RBC % /100WBC Nucleated RBCs # K/uL INR 1.03 Sodium 138 (136-148) mmol/L Potassium 4.3 (3.5-5.1) mmol/L Chloride 104 (98-107) mmol/L Carbon Dioxide 30.5 (21.0-32.0) mmol/L BUN 11 (7.0-18.0) mg/dL Creatinine 1.0 (0.8-1.3) mg/dL Est Cr Clr Drug Dosing 125.90 mL/min Estimated GFR (MDRD) > 60.0 ml/min Glucose 90 (74-106) mg/dL Calcium 8.1 L (8.5-10.1) mg/dL Magnesium 1.6 (1.5-2.0) mg/dL Total Bilirubin 1.2 H (0.2-1.0) mg/dL AST 115 H (15-37) IU/L ALT 118 H (14-63) IU/L Alkaline Phosphatase 99 (46-116) U/L Total Protein 5.9 L (6.4-8.2) g/dL Albumin 2.5 L (3.4-5.0) g/dL Globulin 3.4 (2.0-3.5) g/dL Albumin/Globulin Ratio 0.7 L (1.3-2.8) Med Orders - Current: Current Medications Folic Acid (Folic Acid) 1 mg PO DAILY [facility] Last Admin: 07/25/17 08:21 Dose: 1 mg Pantoprazole Sodium 80 mg/ (Sodium Chloride) 100 mls @ 10 mls/hr IV Q10H [facility] Last Admin: 07/25/17 06:07 Dose: 10 mls/hr Lorazepam (Ativan) 0 mg IVPUSH Q1H PRN; Protocol PRN Reason: Other Last Admin: 07/25/17 02:11 Dose: 1 mg Ondansetron HCl (Zofran) 4 mg IVPUSH Q4H PRN PRN Reason: Nausea/Vomiting Sodium Chloride (Saline Flush) 10 ml FLUSH ASDIRECTED PRN PRN Reason: Keep Vein Open Last Admin: 07/23/17 21:32 Dose: 10 ml Sodium Chloride (Saline Flush) 2.5 ml FLUSH ASDIRECTED PRN PRN Reason: Keep Vein Open Last Admin: 07/23/17 21:32 Dose: 2.5 ml Thiamine HCl (Vitamin B-1) 100 mg IV DAILY [facility] Last Admin: 07/25/17 08:22 Dose: 100 mg Discontinued Medications Sodium Chloride (Normal Saline) 1,000 mls @ 999 mls/hr IV STAT ONE Stop: 07/23/17 22:15 Last Admin: 07/23/17 21:32 Dose: 999 mls/hr Pantoprazole Sodium 80 mg/ (Sodium Chloride) 100 mls @ 10 mls/hr IV .Continuous [facility] Stop: 07/24/17 10:00 Last Admin: 07/23/17 22:44 Dose: 10 mls/hr Sodium Chloride (Normal Saline) 1,000 mls @ 999 mls/hr IV STAT ONE Stop: 07/23/17 22:50 Last Admin: 07/23/17 22:39 Dose: 999 mls/hr Sodium Chloride (Normal Saline) 1,000 mls @ 150 mls/hr IV STAT ONE Stop: 07/24/17 05:15 Last Admin: 07/23/17 22:41 Dose: 150 mls/hr Multivitamins/Minerals 10 ml/Thiamine HCl 100 mg/ Folic Acid 1 mg/ Sodium Chloride 1,011.2 mls @ 125 mls/hr IV DAILY ONE Stop: 07/24/17 07:36 Last Admin: 07/24/17 00:27 Dose: 125 mls/hr Magnesium Sulfate 2 gm/ Premix 50 mls @ 50 mls/hr IV ONETIME ONE Stop: 07/24/17 07:27 Last Admin: 07/24/17 07:25 Dose: 50 mls/hr Magnesium Sulfate 4 gm/ Premix 100 mls @ 25 mls/hr IV ONETIME ONE Stop: 07/24/17 15:03 Last Admin: 07/24/17 13:45 Dose: 25 mls/hr Lorazepam (Ativan) 1 mg IVPUSH ONETIME ONE Stop: 07/23/17 22:20 Last Admin: 07/23/17 22:44 Dose: 1 mg Morphine Sulfate (Morphine) 5 mg IVPUSH Q2H PRN PRN Reason: Pain (severe 7-10) Stop: 07/24/17 23:26 Ondansetron HCl (Zofran) 4 mg IVPUSH ONETIME ONE Stop: 07/23/17 21:16 Last Admin: 07/23/17 21:36 Dose: 4 mg Pantoprazole Sodium (Protonix Iv) 80 mg IVPUSH .BOLUS ONE Stop: 07/23/17 21:16 Last Admin: 07/23/17 21:36 Dose: 80 mg - Exam General: Alert, Oriented GI/Abdominal Exam: Normal Bowel Sounds, Soft, Non-Tender, No Distention - Problem List Review Problem List Initiated/Reviewed/Updated: Yes - My Orders Last 24 Hours: Active Orders 24 hr Category Date Time Status Communication Order [RC] PER UNIT ROUTINE Care 07/25/17 09:30 Active COMPREHENSIVE METABOLIC PN,CMP [CHEM] AM Lab 07/26/17 05:11 Ordered HEPATITIS PANEL, ACUTE [REF] AM Lab 07/26/17 05:11 Ordered INR,PT,PROTHROMBIN TIME [COAG] AM Lab 07/26/17 05:11 Ordered MAGNESIUM [CHEM] AM Lab 07/26/17 05:11 Ordered Folic Acid Med 07/24/17 18:15 Active 1 mg PO DAILY Ondansetron [Zofran] Med 07/24/17 18:16 Active 4 mg IVPUSH Q4H PRN Thiamine [Vitamin B-1] Med 07/24/17 18:15 Active 100 mg IV DAILY Medication Orders Folic Acid (Folic Acid) 1 mg PO DAILY [facility] Last Admin: 07/25/17 08:21 Dose: 1 mg Admin: 07/24/17 18:28 Dose: 1 mg Pantoprazole Sodium 80 mg/ (Sodium Chloride) 100 mls @ 10 mls/hr IV Q10H [facility] Last Admin: 07/25/17 06:07 Dose: 10 mls/hr Infusion: 07/25/17 05:47 Dose: 10 mls/hr Admin: 07/24/17 19:47 Dose: 10 mls/hr Infusion: 07/24/17 19:37 Dose: 10 mls/hr Admin: 07/24/17 09:37 Dose: 10 mls/hr Lorazepam (Ativan) 0 mg IVPUSH Q1H PRN; Protocol PRN Reason: Other Last Admin: 07/25/17 02:11 Dose: 1 mg Admin: 07/24/17 20:15 Dose: 1 mg Admin: 07/24/17 15:08 Dose: 1 mg Admin: 07/24/17 09:08 Dose: 1 mg Admin: 07/24/17 05:35 Dose: 1 mg Ondansetron HCl (Zofran) 4 mg IVPUSH Q4H PRN PRN Reason: Nausea/Vomiting Sodium Chloride (Saline Flush) 10 ml FLUSH ASDIRECTED PRN PRN Reason: Keep Vein Open Last Admin: 07/23/17 21:32 Dose: 10 ml Sodium Chloride (Saline Flush) 2.5 ml FLUSH ASDIRECTED PRN PRN Reason: Keep Vein Open Last Admin: 07/23/17 21:32 Dose: 2.5 ml Thiamine HCl (Vitamin B-1) 100 mg IV DAILY [facility] Last Admin: 07/25/17 08:22 Dose: 100 mg Admin: 07/24/17 18:28 Dose: 100 mg - Assessment Assessment (Free Text/Narrative):: h/h stabled X 48 hrs and no signs or symptoms of active bleeding; will sign off ; pt would benefit from elective EGD; fu w me 2 - 3 wks. tks for the cx and care of this pleasent pt - Plan Plan (Free Text/Narrative):: h/h stabled X 48 hrs and no signs or symptoms of active bleeding; will sign off ; pt would benefit from elective EGD; fu w me 2 - 3 wks. tks for the cx and care of this pleasent pt
--- NOTE | 2017-07-25 18:01 | PCM.PN ---
- General Info Date of Service: 07/25/17 Subjective Update: From a upper GI bleed standpoint the patient has been stable since admission with no further episodes of coffee ground type emesis, patient longer is having abdominal pain, patient is tolerating by mouth without any difficulties. Patient is still withdrawing and has a likelihood of continued to withdraw harder, on assessment the patient was having obvious tremors and was agitated, his his CIWA scores were between 6-10. - Patient Data Vitals - Most Recent: Last Vital Signs Temp 36.4 C 07/25/17 16:00 Pulse 84 07/25/17 07:00 Resp 17 07/25/17 16:00 BP 124/62 07/25/17 16:00 Pulse Ox 100 07/25/17 16:00 Weight - Most Recent: 89.1 kg I&O - Last 24 Hours: Intake & Output 07/25/17 07/25/17 07/25/17 06:59 14:59 22:59 Intake Total 500 1243 Output Total 2500 475 Balance -1999 768 Lab Results Last 24 Hours: Laboratory Results - last 24 hr 07/24/17 07/25/17 07/25/17 Range/Units 23:05 05:22 05:22 WBC 6.43 6.72 (4.0-11.0) K/uL RBC 3.59 L 3.53 L (4.50-5.90) M/uL Hgb 10.7 L 10.5 L (13.0-17.0) g/dL Hct 32.4 L 32.1 L (38.0-50.0) % MCV 90.3 90.9 (80.0-98.0) fL MCH 29.8 29.7 (27.0-32.0) pg MCHC 33.0 32.7 (31.0-37.0) g/dL RDW Std Deviation 47.1 46.8 (28.0-62.0) fl RDW Coeff of [place] 14 14 (11.0-15.0) % Plt Count 232 234 (150-400) K/uL MPV 10.40 10.40 (7.40-12.00) fL Neut % (Auto) 52.6 53.9 (48.0-80.0) % Lymph % (Auto) 28.6 26.6 (16.0-40.0) % [place] % (Auto) 13.7 14.1 (0.0-15.0) % Eos % (Auto) 3.7 4.2 (0.0-7.0) % Baso % (Auto) 1.4 1.2 (0.0-1.5) % Neut # (Auto) 3.4 3.6 (1.4-5.7) K/uL Lymph # (Auto) 1.8 1.8 (0.6-2.4) K/uL [place] # (Auto) 0.9 H 1.0 H (0.0-0.8) K/uL Eos # (Auto) 0.2 0.3 (0.0-0.7) K/uL Baso # (Auto) 0.1 0.1 (0.0-0.1) K/uL Nucleated RBC % 0.0 0.0 /100WBC Nucleated RBCs # 0 0 K/uL INR Sodium 138 (136-148) mmol/L Potassium 4.3 (3.5-5.1) mmol/L Chloride 104 (98-107) mmol/L Carbon Dioxide 30.5 (21.0-32.0) mmol/L BUN 11 (7.0-18.0) mg/dL Creatinine 1.0 (0.8-1.3) mg/dL Est Cr Clr Drug Dosing 125.90 mL/min Estimated GFR (MDRD) > 60.0 ml/min Glucose 90 (74-106) mg/dL Calcium 8.1 L (8.5-10.1) mg/dL Magnesium 1.6 (1.5-2.0) mg/dL Total Bilirubin 1.2 H (0.2-1.0) mg/dL AST 115 H (15-37) IU/L ALT 118 H (14-63) IU/L Alkaline Phosphatase 99 (46-116) U/L Total Protein 5.9 L (6.4-8.2) g/dL Albumin 2.5 L (3.4-5.0) g/dL Globulin 3.4 (2.0-3.5) g/dL Albumin/Globulin Ratio 0.7 L (1.3-2.8) 07/25/17 Range/Units 05:22 WBC (4.0-11.0) K/uL RBC (4.50-5.90) M/uL Hgb (13.0-17.0) g/dL Hct (38.0-50.0) % MCV (80.0-98.0) fL MCH (27.0-32.0) pg MCHC (31.0-37.0) g/dL RDW Std Deviation (28.0-62.0) fl RDW Coeff of [place] (11.0-15.0) % Plt Count (150-400) K/uL MPV (7.40-12.00) fL Neut % (Auto) (48.0-80.0) % Lymph % (Auto) (16.0-40.0) % [place] % (Auto) (0.0-15.0) % Eos % (Auto) (0.0-7.0) % Baso % (Auto) (0.0-1.5) % Neut # (Auto) (1.4-5.7) K/uL Lymph # (Auto) (0.6-2.4) K/uL [place] # (Auto) (0.0-0.8) K/uL Eos # (Auto) (0.0-0.7) K/uL Baso # (Auto) (0.0-0.1) K/uL Nucleated RBC % /100WBC Nucleated RBCs # K/uL INR 1.03 Sodium (136-148) mmol/L Potassium (3.5-5.1) mmol/L Chloride (98-107) mmol/L Carbon Dioxide (21.0-32.0) mmol/L BUN (7.0-18.0) mg/dL Creatinine (0.8-1.3) mg/dL Est Cr Clr Drug Dosing mL/min Estimated GFR (MDRD) ml/min Glucose (74-106) mg/dL Calcium (8.5-10.1) mg/dL Magnesium (1.5-2.0) mg/dL Total Bilirubin (0.2-1.0) mg/dL AST (15-37) IU/L ALT (14-63) IU/L Alkaline Phosphatase (46-116) U/L Total Protein (6.4-8.2) g/dL Albumin (3.4-5.0) g/dL Globulin (2.0-3.5) g/dL Albumin/Globulin Ratio (1.3-2.8) Med Orders - Current: Current Medications Folic Acid (Folic Acid) 1 mg PO DAILY [facility] Last Admin: 07/25/17 08:21 Dose: 1 mg Pantoprazole Sodium 80 mg/ (Sodium Chloride) 100 mls @ 10 mls/hr IV Q10H [facility] Last Admin: 07/25/17 16:34 Dose: 10 mls/hr Lorazepam (Ativan) 0 mg IVPUSH Q1H PRN; Protocol PRN Reason: Other Last Admin: 07/25/17 14:02 Dose: 1 mg Ondansetron HCl (Zofran) 4 mg IVPUSH Q4H PRN PRN Reason: Nausea/Vomiting Sodium Chloride (Saline Flush) 10 ml FLUSH ASDIRECTED PRN PRN Reason: Keep Vein Open Last Admin: 07/23/17 21:32 Dose: 10 ml Sodium Chloride (Saline Flush) 2.5 ml FLUSH ASDIRECTED PRN PRN Reason: Keep Vein Open Last Admin: 07/23/17 21:32 Dose: 2.5 ml Thiamine HCl (Vitamin B-1) 100 mg IV DAILY [facility] Last Admin: 07/25/17 08:22 Dose: 100 mg Discontinued Medications Sodium Chloride (Normal Saline) 1,000 mls @ 999 mls/hr IV STAT ONE Stop: 07/23/17 22:15 Last Admin: 07/23/17 21:32 Dose: 999 mls/hr Pantoprazole Sodium 80 mg/ (Sodium Chloride) 100 mls @ 10 mls/hr IV .Continuous [facility] Stop: 07/24/17 10:00 Last Admin: 07/23/17 22:44 Dose: 10 mls/hr Sodium Chloride (Normal Saline) 1,000 mls @ 999 mls/hr IV STAT ONE Stop: 07/23/17 22:50 Last Admin: 07/23/17 22:39 Dose: 999 mls/hr Sodium Chloride (Normal Saline) 1,000 mls @ 150 mls/hr IV STAT ONE Stop: 07/24/17 05:15 Last Admin: 07/23/17 22:41 Dose: 150 mls/hr Multivitamins/Minerals 10 ml/Thiamine HCl 100 mg/ Folic Acid 1 mg/ Sodium Chloride 1,011.2 mls @ 125 mls/hr IV DAILY ONE Stop: 07/24/17 07:36 Last Admin: 07/24/17 00:27 Dose: 125 mls/hr Magnesium Sulfate 2 gm/ Premix 50 mls @ 50 mls/hr IV ONETIME ONE Stop: 07/24/17 07:27 Last Admin: 07/24/17 07:25 Dose: 50 mls/hr Magnesium Sulfate 4 gm/ Premix 100 mls @ 25 mls/hr IV ONETIME ONE Stop: 07/24/17 15:03 Last Admin: 07/24/17 13:45 Dose: 25 mls/hr Lorazepam (Ativan) 1 mg IVPUSH ONETIME ONE Stop: 07/23/17 22:20 Last Admin: 07/23/17 22:44 Dose: 1 mg Morphine Sulfate (Morphine) 5 mg IVPUSH Q2H PRN PRN Reason: Pain (severe 7-10) Stop: 07/24/17 23:26 Ondansetron HCl (Zofran) 4 mg IVPUSH ONETIME ONE Stop: 07/23/17 21:16 Last Admin: 07/23/17 21:36 Dose: 4 mg Pantoprazole Sodium (Protonix Iv) 80 mg IVPUSH .BOLUS ONE Stop: 07/23/17 21:16 Last Admin: 07/23/17 21:36 Dose: 80 mg - Exam Quality Assessment: Supplemental Oxygen General: Alert, Oriented Lungs: Clear to Auscultation, Normal Respiratory Effort Cardiovascular: Tachycardia GI/Abdominal Exam: Normal Bowel Sounds Extremities: Other (Patient has obvious tremors) - Problem List Review Problem List Initiated/Reviewed/Updated: Yes - My Orders Last 24 Hours: My Active Orders 07/24/17 18:15 Folic Acid 1 mg PO DAILY Thiamine [Vitamin B-1] 100 mg IV DAILY 07/24/17 18:16 Ondansetron [Zofran] 4 mg IVPUSH Q4H PRN 07/25/17 09:30 Communication Order [RC] PER UNIT ROUTINE - Plan Plan:: Upper GI bleed- based on the patient's history of coffee-ground emesis he likely etiology of the patient's GI bleed is peptic ulcer disease, rather than esophageal varices. Dr. Salcedo did assess the patient and does not believe that the patient needs an emergent EGD. Patient can see him outpatient where he will have the patient have an EGD at that point in time. -Dr. Moralez as the patient is stable from a surgical standpoint and has signed off on the patient. He should see the patient in an outpatient setting. -Continue with CIWA protocol with withdrawal symptoms, I shall be switching the patient over to oral Protonix. - Patient is continuing to have alcohol withdrawal, CIWA scores of 6-10. Continue Ativan protocol. Shall reassess in the a.m.
[2017-07-25] MEDS ORDERED: Thiamine 100 MG Tab PO SCH (21:00)
[2017-07-25] MEDS ORDERED: LORazepam 0.5 MG Tab PO PRN (23:55)
[2017-07-26 06:31] LABS: CHLORIDE,CL 103 mmol/L (98-107); SODIUM,NA 138 mmol/L (136-148)
[2017-07-26] MEDS ORDERED: Pantoprazole 40 MG Tab.CR PO SCH (07:30)
[2017-07-26] MEDS: Folic Acid 1 MG Tab PO SCH (08:57)
[2017-07-26] MEDS: LORazepam 2 MG/ML SDV IVPUSH PRN (14:03)
--- NOTE | 2017-07-26 15:54 | PCM.DCSUM1 ---
Discharge Summary - Hospital Course HPI Initial Comments: Discharge Summary Date of admission: 07/23/17 Date of discharge: AMA Admitting diagnosis: #1. Upper GI bleed likely peptic ulcer in nature #2. Acute alcohol dependence/abuse #3. Acute alcohol withdrawal #4. Elevated LFTs indicating liver damage #5. Discharge diagnoses: #1. AMA #2. Acute GI bleed stable to be assessed outpatient surgery #3. LFTs trending downwards #4. Patient was still in withdrawal however unable to determine whether they are trending downwards are not as the patient left AMA #5. Consultations: Gen. surgery, Jignesh Moralez Procedures: None Hospitalization course: Patient was admitted 07/23/2017 secondary to acute GI bleed which was coffee-ground in nature, she was put on IV Protonix, general surgery was consulted, general surgery after assessing the patient felt that the patient did not require an emergent EGD and that this could be assessed in an outpatient setting, patient did not have any further episodes of GI bleed while in his inpatient stay. Patient was in the ICU up until 07/26/2017 due to his withdrawal symptoms, he was downgraded to the regular floor on the same day , he still was having CIWA scores that ranged between 4-10 but overall he was stable. Patient however stated that he had way too many things that he needs to be done at home and that he was going to sign out AMA. We explained to the patient extensively that there is a likelihood that he is still going to withdraw even harder and that it would be very medically inappropriate for the patient to be discharged at this point in time. Patient understood however still asked to be discharged. Patient was discharged AMA with a prescription for thiamine, folic acid, oral Protonix. Disposition on discharge: AMA Condition on discharge: Discharge medications: Thiamine, folic acid, Protonix Follow-up instructions: Follow-up with Dr. Salcedo in August, patient to follow-up with residency clinic for PCP establishment as well as assessment of withdrawal symptoms on 07/27/2017. - Discharge Data Discharge Date: 07/26/17 Discharge Disposition: Against Medical Advice 07 Condition: Fair - Patient Summary/Data Consults: Consultations 07/24/17 09:00 Consult to Physician [CONS] Urgent - Discharge Plan Prescriptions/Med Rec: Folic Acid 1 mg PO DAILY 30 Days #30 tablet Pantoprazole [ProTONIX] 40 mg PO DAILY 30 Days #30 tab.cr Thiamine [Vitamin B-1] 100 mg PO BEDTIME 30 Days #30 tablet Home Medications: Home Meds Folic Acid 1 mg PO DAILY 30 Days #30 tablet 07/26/17 [Rx] Pantoprazole [ProTONIX] 40 mg PO DAILY 30 Days #30 tab.cr 07/26/17 [Rx] Thiamine [Vitamin B-1] 100 mg PO BEDTIME 30 Days #30 tablet 07/26/17 [Rx] Patient Handouts: Alcohol Withdrawal, Thiamine, Vitamin B1 tablets, Pantoprazole tablets, Folic Acid, Vitamin B9 tablets Referrals: Jignesh Moralez MD [Physician] - 08/14/17 10:45 am (Follow-up as outpatient with Dr. Moralez one week after discharge) PCP,None [Primary Care Provider] - Silverio Ayala MD [Physician] - 07/28/17 9:00 am - Discharge Summary/Plan Comment DC Time >30 min.: No - Patient Data Vitals - Most Recent: Last Vital Signs Temp 36.8 C 07/26/17 12:06 Pulse 102 H 07/26/17 12:06 Resp 16 07/26/17 12:06 BP 131/91 H 07/26/17 12:06 Pulse Ox 95 07/26/17 12:06 Weight - Most Recent: 87.4 kg I&O - Last 24 hours: Intake & Output 07/26/17 07/26/17 07/26/17 06:59 14:59 22:59 Intake Total 750 240 Output Total 1350 Balance -600 240 Lab Results - Last 24 hrs: Laboratory Results - last 24 hr 07/26/17 07/26/17 Range/Units 05:51 05:51 INR 0.98 Sodium 138 (136-148) mmol/L Potassium 3.9 (3.5-5.1) mmol/L Chloride 103 (98-107) mmol/L Carbon Dioxide 26.8 (21.0-32.0) mmol/L BUN 9 (7.0-18.0) mg/dL Creatinine 0.9 (0.8-1.3) mg/dL Est Cr Clr Drug Dosing 139.89 mL/min Estimated GFR (MDRD) > 60.0 ml/min Glucose 105 (74-106) mg/dL Calcium 8.7 (8.5-10.1) mg/dL Magnesium 1.6 (1.5-2.0) mg/dL Total Bilirubin 0.8 (0.2-1.0) mg/dL AST 90 H (15-37) IU/L ALT 110 H (14-63) IU/L Alkaline Phosphatase 104 (46-116) U/L Total Protein 6.0 L (6.4-8.2) g/dL Albumin 2.8 L (3.4-5.0) g/dL Globulin 3.2 (2.0-3.5) g/dL Albumin/Globulin Ratio 0.9 L (1.3-2.8) Med Orders - Current: Current Medications Folic Acid (Folic Acid) 1 mg PO DAILY [facility] Last Admin: 07/26/17 08:57 Dose: 1 mg Lorazepam (Ativan) 0 mg IVPUSH Q1H PRN; Protocol PRN Reason: Other Last Admin: 07/26/17 14:03 Dose: 1 mg Lorazepam (Ativan) 0 mg PO Q1H PRN; Protocol PRN Reason: Anxiety Last Admin: 07/26/17 00:01 Dose: 1 mg Ondansetron HCl (Zofran) 4 mg IVPUSH Q4H PRN PRN Reason: Nausea/Vomiting Pantoprazole Sodium (Protonix) 40 mg PO BIDAC [facility] Last Admin: 07/26/17 06:29 Dose: 40 mg Sodium Chloride (Saline Flush) 10 ml FLUSH ASDIRECTED PRN PRN Reason: Keep Vein Open Last Admin: 07/23/17 21:32 Dose: 10 ml Sodium Chloride (Saline Flush) 2.5 ml FLUSH ASDIRECTED PRN PRN Reason: Keep Vein Open Last Admin: 07/23/17 21:32 Dose: 2.5 ml Thiamine HCl (Vitamin B-1) 100 mg PO BEDTIME [facility] Last Admin: 07/25/17 20:16 Dose: 100 mg Discontinued Medications Sodium Chloride (Normal Saline) 1,000 mls @ 999 mls/hr IV STAT ONE Stop: 07/23/17 22:15 Last Admin: 07/23/17 21:32 Dose: 999 mls/hr Pantoprazole Sodium 80 mg/ (Sodium Chloride) 100 mls @ 10 mls/hr IV .Continuous [facility] Stop: 07/24/17 10:00 Last Admin: 07/23/17 22:44 Dose: 10 mls/hr Sodium Chloride (Normal Saline) 1,000 mls @ 999 mls/hr IV STAT ONE Stop: 07/23/17 22:50 Last Admin: 07/23/17 22:39 Dose: 999 mls/hr Sodium Chloride (Normal Saline) 1,000 mls @ 150 mls/hr IV STAT ONE Stop: 07/24/17 05:15 Last Admin: 07/23/17 22:41 Dose: 150 mls/hr Multivitamins/Minerals 10 ml/Thiamine HCl 100 mg/ Folic Acid 1 mg/ Sodium Chloride 1,011.2 mls @ 125 mls/hr IV DAILY ONE Stop: 07/24/17 07:36 Last Admin: 07/24/17 00:27 Dose: 125 mls/hr Magnesium Sulfate 2 gm/ Premix 50 mls @ 50 mls/hr IV ONETIME ONE Stop: 07/24/17 07:27 Last Admin: 07/24/17 07:25 Dose: 50 mls/hr Pantoprazole Sodium 80 mg/ (Sodium Chloride) 100 mls @ 10 mls/hr IV Q10H [facility] Last Admin: 07/25/17 16:34 Dose: 10 mls/hr Magnesium Sulfate 4 gm/ Premix 100 mls @ 25 mls/hr IV ONETIME ONE Stop: 07/24/17 15:03 Last Admin: 07/24/17 13:45 Dose: 25 mls/hr Lorazepam (Ativan) 1 mg IVPUSH ONETIME ONE Stop: 07/23/17 22:20 Last Admin: 07/23/17 22:44 Dose: 1 mg Morphine Sulfate (Morphine) 5 mg IVPUSH Q2H PRN PRN Reason: Pain (severe 7-10) Stop: 07/24/17 23:26 Ondansetron HCl (Zofran) 4 mg IVPUSH ONETIME ONE Stop: 07/23/17 21:16 Last Admin: 07/23/17 21:36 Dose: 4 mg Pantoprazole Sodium (Protonix Iv) 80 mg IVPUSH .BOLUS ONE Stop: 07/23/17 21:16 Last Admin: 07/23/17 21:36 Dose: 80 mg Thiamine HCl (Vitamin B-1) 100 mg IV DAILY [facility] Last Admin: 07/25/17 08:22 Dose: 100 mg *Q Meaningful Use (DIS) - VTE *Q VTE Criteria *Q: - Stroke *Q Stroke Criteria *Q: - AMI *Q AMI Criteria *Q:
== END 2017-07-26 14:31 | disposition left against medical advice (07) | DRG 378 ==
LOC: MW.ED 20:28 → MW.ICU 22:32 → MW.MS 07-26 11:31
PROVIDERS: ADMIT Family Medicine; ATTEND Family Medicine
DX: K27.4 Chronic or unspecified peptic ulcer, site unspecified, with hemorrhage (principal); F10.239 Alcohol dependence with withdrawal, unspecified; F17.290 Nicotine dependence, other tobacco product, uncomplicated; R74.8 Abnormal levels of other serum enzymes
CPT/HCPCS: 36415; 71045; 71045-26; 76705; 76705-26; 80053; 80074; 82150; 83690; 83735; 84100; 85025; 85610; 86677; 86850; 86900; 86901; 93005; 96361; 96365; 96375; 96376; 99284; 99285-25; A9270-GY; C9113; G0480; J2060; J2405; J3411; J3475; J7030; J7040